=== PATIENT | female | born 1940 | race Caucasian/White ===

== ENCOUNTER 2019-05-27 16:18 | Observation (INO) ==
--- NOTE | 2019-05-27 16:38 | Emergency Department Note ---
Disposition Clinical Impression: Mucus plugging of bronchi, Mass of left lung, Adrenal mass, Pulmonary artery abnormality Lung cancer, primary, with metastasis from lung to other site Qualifiers: Laterality: left Qualified Code(s): C34.92 - Malignant neoplasm of unspecified part of left bronchus or lung Dyspnea Qualifiers: Dyspnea type: shortness of breath Qualified Code(s): R06.02 - Shortness of breath Disposition: Admitted As Inpatient Condition: Fair Time of Disposition: 19:25 General Adult HPI - General Chief complaint: ED Shortness of Breath/Dyspnea Stated complaint: eyad Time Seen by Provider: 05/27/19 16:26 Source: patient Limitations: no limitations - History of Present Illness Pain Scale: 6 - Related Data Home Medications Medication Instructions Recorded Confirmed Apixaban [Eliquis] 2.5 mg PO BID 05/27/19 05/27/19 Aspirin [Lo-Dose Aspirin EC] 81 mg PO DAILY 05/27/19 05/27/19 Buspirone HCl [Buspar] 7.5 mg PO BID 05/27/19 05/27/19 Cabozantinib S-Malate [Cabometyx] 40 mg PO DAILY 05/27/19 05/27/19 MethylPREDNISolone 4 mg PO AD 05/27/19 05/27/19 [MethylPREDNISolone Dose Pack] Metoprolol [Lopressor] 12.5 mg PO BID 05/27/19 05/27/19 Ondansetron ODT [Zofran ODT] 8 mg SL Q8HR PRN 05/27/19 05/27/19 Sodium Bicarbonate 650 mg PO BID 05/27/19 05/27/19 levoFLOXacin [Levaquin] 500 mg PO DAILY 05/27/19 05/27/19 Allergies Allergy/AdvReac Type Severity Reaction Status Date / Time No Known Allergies Allergy Verified 05/27/19 16:44 Past Medical History - Past Medical History Medical history: Reports: cancer, myocardial infarction Psychiatric history: Reports: no psych history - Social History Smoking Status: Former smoker Alcohol use: Reports: none Drug use: Reports: none Physical Exam - General Limitations: no limitations General appearance: alert, in no apparent distress Course Vital Signs Temperature 98.0 F 05/27/19 16:26 Pulse Rate 109 05/27/19 16:26 Respiratory Rate 20 05/27/19 16:26 Blood Pressure 189/114 05/27/19 16:26 O2 Sat by Pulse Oximetry 98 05/27/19 16:26 Temperature 97.7 F 05/27/19 23:06 Pulse Rate 89 05/27/19 23:06 Respiratory Rate 14 05/27/19 23:06 Blood Pressure 172/68 05/27/19 23:06 O2 Sat by Pulse Oximetry 99 05/27/19 23:06 Oxygen Delivery Oxygen Delivery Nasal Cannula Medical Decision Making - Lab Data Result diagrams: 05/27/19 16:45 05/27/19 16:45 Lab Results 05/27/19 05/27/19 05/27/19 Range/Units 16:45 16:45 18:40 WBC 10.7 (4.3-11.1) K/mcL RBC 4.20 (3.82-4.97) M/mcL Hgb 10.6 L (11.5-15.4) g/dL Hct 34.8 L (35.3-44.9) % MCV 82.9 L (83.0-100.0) fL MCH 25.2 L (28.0-33.3) pg MCHC 30.5 L (31.6-35.5) g/dL RDW 24.0 H (11.5-14.5) % Plt Count 506 H (140-400) K/mcL MPV 9.6 (9.4-12.4) fL Immature Gran % 0.7 (0-4) % Seg Neutrophils % 91.0 % Lymphocytes % 5.3 % Monocytes % 2.9 % Eosinophils % 0.0 % Basophils % 0.1 % Neutrophils # 9.7 H (1.6-8.9) K/mcL Lymphocytes # 0.6 (0.6-4.6) K/mcL Monocytes # 0.3 (0.0-1.3) K/mcL Eosinophils # 0.0 (0.0-0.6) K/mcL Basophils # 0.0 (0.0-0.2) K/mcL Nucleated RBCs/100 WBC 0.2 H (0) /100 WBC Platelet Estimate Slight increase H (Normal) Hypochromasia Present A (Not Present) Anisocytosis 3+ A (Not Present) PT 17.1 H (9.4-12.1) Seconds INR 1.5 APTT 32.4 (26.0-36.0) Seconds Heparin Anti-Xa, Unfract 1.86 H* (0.30-0.70) IU/mL Sodium 137 (136-145) mEq/L Potassium 4.8 (3.5-5.1) mEq/L Chloride 106 (98-107) mEq/L Carbon Dioxide 19 L (23-29) mEq/L BUN 55 H (8-23) mg/dL Creatinine 2.09 H (0.60-1.20) mg/dL Est GFR ( Amer) 28 L (> 60) Est GFR (Non-Af Amer) 23 L (> 60) BUN/Creatinine Ratio 26 (6-26) Glucose 108 H (70-105) mg/dL Calculated Osmolality 300 (280-300) Calcium 8.7 (8.6-10.3) mg/dL Troponin I 0.08 H* (< 0.04) ng/mL Attestation Statement - Attestation Attestation: I examined this patient and my medical decision-making was reviewed with the Resident Physician. I agree with the documented findings, disposition and treatment plan as described except to the extent set forth below. Patient presents to the ED with a chief complaint of shortness of breath for several days duration. Patient has a known lung tumor. She is also complaining of some lower abdominal discomfort. She has been seen by her PCP and started on outpatient antibiotic. Receives most of her care Allison. On exam she appears comfortable. Diffuse expiratory wheezing on lung auscultation. Plan. Nebs, cardiac workup, VQ scan. EKG reviewed with the resident. Case discussed with the radiologist. There is concern there was no perfusion to the left lung. Question if this is cancer related. He believes it most likely is. She was placed on a heparin drip so we could remove her from Eliquis for possible bronchoscopy after discussing with pulmonology. Pulmonary Perfusion Imaging 05/27/19 00:00 IMPRESSION: Intermediate probability for pulmonary embolus. Essentially no perfusion to the left lung which may be due to pulmonary artery occlusion by the known malignancy, or less likely embolus. D/ / 05/27/2019 18:10:43 Gerhard Merino MD / [place] Interpreting Provider: Gerhard Merino MD Chest CT 05/27/19 16:40 IMPRESSION: Redemonstration of a large left lower lobe mass with postobstructive pneumonitis and atelectasis. New when compared to the previous exam is mucous plugging and/or aspiration debris within the left upper lobe airways, which is a likely etiology of the patient's increasing dyspnea. Redemonstration of emphysema, a nodular opacity adjacent to the minor fissure on the right, and a metastatic right adrenal lesion. D/ / Nahum Queen MD / Nahum Queen MD Interpreting Provider: Nahum Queen MD Chest X-Ray 05/27/19 16:47 IMPRESSION: Left basilar masslike consolidation and trace left pleural effusion, similar to the recent PET-CT. No new abnormality. D/ / 05/27/2019 17:11:16 Travis Merino MD / ang Interpreting Provider: Travis Merino MD Abdomen/Pelvis CT 05/27/19 17:11 IMPRESSION: 1. No acute process demonstrated 2. Stable right adrenal mass and left upper quadrant soft tissue nodules 3. Colonic diverticulosis 4. Status post left nephrectomy and segmental sigmoid resection D/ / Ryan Collins MD / Ryan Collins MD Interpreting Provider: Ryan Collins MD
[2019-05-27] MEDS ORDERED: 0.9 % Sodium Chloride 500 ML IVC ONE (16:41)
[2019-05-27] MEDS ORDERED: Ondansetron 4 MG/2 ML VIAL IVP ONE (16:41)
[2019-05-27] MEDS ORDERED: Ipratropium/Albuterol Neb 3 ML IH ONE (16:42)
[2019-05-27 17:12] LABS: Basophils % 0.1 %; Hematocrit 34.8 % (35.3-44.9); Hemoglobin 10.6 g/dL (11.5-15.4); Immature Granulocytes % 0.7 % (0-4); Lymphocytes # 0.6 K/mcL (0.6-4.6); Lymphocytes % 5.3 %; Mean Corpuscular HGB Conc 30.5 g/dL (31.6-35.5); Mean Corpuscular Hemoglobin 25.2 pg (28.0-33.3); Mean Corpuscular Volume 82.9 fL (83.0-100.0); Mean Platelet Volume 9.6 fL (9.4-12.4); Monocytes # 0.3 K/mcL (0.0-1.3); Monocytes % 2.9 %; Neutrophils # 9.7 K/mcL (1.6-8.9); Nucleated Red Blood Cells 0.2 /100 WBC (0); Platelet Count 506 K/mcL (140-400); White Blood Count 10.7 K/mcL (4.3-11.1)
--- NOTE | 2019-05-27 17:22 | Emergency Department Note ---
Disposition Clinical Impression: Mucus plugging of bronchi, Mass of left lung, Adrenal mass, Pulmonary artery abnormality Lung cancer, primary, with metastasis from lung to other site Qualifiers: Laterality: left Qualified Code(s): C34.92 - Malignant neoplasm of unspecified part of left bronchus or lung Dyspnea Qualifiers: Dyspnea type: shortness of breath Qualified Code(s): R06.02 - Shortness of breath Disposition: Admitted As Inpatient Condition: Fair Forms: ED Satisfaction Letter Time of Disposition: 19:22 SOB HPI - General Chief Complaint: ED Shortness of Breath/Dyspnea Stated Complaint: eyad Time Seen by Provider: 05/27/19 16:26 Source: patient Mode of arrival: ambulatory Limitations: no limitations Nursing Notes Reviewed: Yes Vital Signs Reviewed: Yes - History of Present Illness 78-year-old female history of lung cancer with metastases to the adrenal glands. Showing has one kidney secondary to losing one to renal cell carcinoma. She is not stage IV kidney failure. She normally gets her care done at [facility]. She is currently on immunotherapy at this time she is doing chemotherapy. She did have 15 rounds of radiation proximally one month ago. She was diagnosed with lung cancer in December. Said that she has having increasing shortness of breath as well as some mild nausea. She has been taking her Zofran she was recently seen by her primary care physician 3 days ago she does have history of COPD and was started on Levaquin as well as prednisone. Has been on 3 days that with no relief of her shortness of breath. She also recently started on oxygen home therapy being on 2 L at all times secondary to her lung cancer as well as COPD. Patient otherwise has no other complaints she did not have any fevers. He denies any chest pain - Related Data Home Medications Medication Instructions Recorded Confirmed Apixaban [Eliquis] 2.5 mg PO BID 05/27/19 05/27/19 Aspirin [Lo-Dose Aspirin EC] 81 mg PO DAILY 05/27/19 05/27/19 Buspirone HCl [Buspar] 7.5 mg PO BID 05/27/19 05/27/19 Cabozantinib S-Malate [Cabometyx] 40 mg PO DAILY 05/27/19 05/27/19 MethylPREDNISolone 4 mg PO AD 05/27/19 05/27/19 [MethylPREDNISolone Dose Pack] Metoprolol [Lopressor] 12.5 mg PO BID 05/27/19 05/27/19 Ondansetron ODT [Zofran ODT] 8 mg SL Q8HR PRN 05/27/19 05/27/19 Sodium Bicarbonate 650 mg PO BID 05/27/19 05/27/19 levoFLOXacin [Levaquin] 500 mg PO DAILY 05/27/19 05/27/19 Allergies Allergy/AdvReac Type Severity Reaction Status Date / Time No Known Allergies Allergy Verified 05/27/19 16:44 All systems ED: reviewed and negative except as stated. Review of Systems: As Per HPI Past Medical History - Past Medical History Attestation: Yes The following information was validated with the patient. Source: patient Medical history: Reports: cancer, myocardial infarction Psychiatric history: Reports: no psych history - Social History Smoking Status: Former smoker Alcohol use: Reports: none Drug use: Reports: none Physical Exam - General Limitations: no limitations General appearance: alert, in no apparent distress - Head Head exam: atraumatic, normocephalic, normal inspection - Eye Eye exam: Present: normal appearance, PERRL, EOMI - ENT ENT exam: normal exam, normal oropharynx, mucous membranes moist - Neck Neck exam: Present: normal inspection, full ROM, trachea midline - Chest Chest inspection: Present: normal inspection, symmetric chest wall rise - Respiratory Respiratory exam: Present: normal lung sounds bilaterally, wheezes (I will expiratory wheezes). Absent: respiratory distress, accessory muscle use - Cardiovascular Cardiovascular exam: Present: regular rate (He jyotsna), normal rhythm, normal heart sounds - Abdominal Exam Abdominal exam: Present: soft, Non-Tender, normal bowel sounds. Absent: tenderness, distention, guarding, rebound, rigidity - Extremities Exam Extremities exam: Present: normal inspection, full ROM. Absent: tenderness, pedal edema - Back Exam Back exam: Present: normal inspection, full ROM. Absent: tenderness - Neurological Exam Neurological exam: Present: alert, oriented X3 - Skin Skin exam: Present: warm, dry, intact, normal color Course Course Narrative: We have basic labs including CBC BMP troponin. Well-seated EKG and chest x-ray. Patient does have history of kidney failure only has one kidney so is not a candidate to CT angiogram of the chest rule out pulmonary embolus and so we will get a VQ scan. To get better imaging of the chest for possible pneumonia or worsening of her nodules we will get a CT of the chest without contrast as well as of the abdomen and pelvis due to the nausea and mild abdominal pain she is having. Patient care this plan. We will receive duo nebs. Is currently on steroids at this time. No further steroid treatment is needed. - Consultations Consultation #1: Spoke with pulmonology who recommended heparinizing the patient and stopping the Eliquis and in 2 days they will plan to do bronchoscopy to get better look of her lungs. No further recommendations by pulmonology at this time. Spoke with Dr. Jacob Time: 18:52 Vital Signs Temperature 98.0 F 05/27/19 16:26 Pulse Rate 109 05/27/19 16:26 Respiratory Rate 20 05/27/19 16:26 Blood Pressure 189/114 05/27/19 16:26 O2 Sat by Pulse Oximetry 98 05/27/19 16:26 Temperature 98.0 F 05/27/19 16:26 Pulse Rate 99 05/27/19 18:21 Respiratory Rate 20 05/27/19 18:21 Blood Pressure 156/91 05/27/19 18:21 O2 Sat by Pulse Oximetry 100 05/27/19 18:21 Oxygen Delivery Oxygen Delivery Nasal Cannula Shortness of Breath/Dyspnea - MDM Narrative Medical decision making narrative: 78 year old female presented to the emergency department with dyspnea. She does have diagnosis of lung cancer with metastases to the adrenal glands. She is [facility] at [facility] for her oncology. The CAT scan showed possible mucous plugging as well as aspiration. Says she has not vomited there is no risk of aspiration this time so not to treat her we will get blood cultures. We did do a VQ scan due to patient having one kidney and having stage IV kidney failure which did show no blood flow to the left lung which could be secondary to patient's tumor rather than a pulmonary embolus of her chair he is anticoagulated on Eliquis. We will change patient to heparin and heparinize her. I did speak with the on-call steel post installer who recommended bronchoscopy in 2 days to allow the Eliquis to get out of her system. Patient is stable at this time is been no respiratory distress. Did give her a breathing treatments did help with her breathing. He is arty been on 3 days of steroids as well as 3 days Levaquin with no relief. I think this is all secondary to patient's wo rsening cancer and nodules/mass. Patient will be admitted for further evaluation to the hospitalist service I spoke with Dr. Tom Who agreed to admit the patient to their service. Patient is admitted in fair condition. CODE STATUS DNI but otherwise full code Pulmonary Perfusion Imaging 05/27/19 00:00 IMPRESSION: Intermediate probability for pulmonary embolus. Essentially no perfusion to the left lung which may be due to pulmonary artery occlusion by the known malignancy, or less likely embolus. D/ / 05/27/2019 18:10:43 Gerhard Merino MD / [place] Interpreting Provider: Gerhard Merino MD Chest CT 05/27/19 16:40 IMPRESSION: Redemonstration of a large left lower lobe mass with postobstructive pneumonitis and atelectasis. New when compared to the previous exam is mucous plugging and/or aspiration debris within the left upper lobe airways, which is a likely etiology of the patient's increasing dyspnea. Redemonstration of emphysema, a nodular opacity adjacent to the minor fissure on the right, and a metastatic right adrenal lesion. D/ / Nahum Queen MD / Nahum Queen MD Interpreting Provider: Nahum Queen MD Chest X-Ray 05/27/19 16:47 IMPRESSION: Left basilar masslike consolidation and trace left pleural effusion, similar to the recent PET-CT. No new abnormality. D/ / 05/27/2019 17:11:16 Travis Merino MD / ang Interpreting Provider: Travis Merino MD Abdomen/Pelvis CT 05/27/19 17:11 IMPRESSION: 1. No acute process demonstrated 2. Stable right adrenal mass and left upper quadrant soft tissue nodules 3. Colonic diverticulosis 4. Status post left nephrectomy and segmental sigmoid resection D/ / Ryan Collins MD / Ryan Collins MD Interpreting Provider: Ryan Collins MD Done for 5 days she said it is doing cannot feel like he do a candidate ED and she is on 5 days and she wants - Medical Records Medical records reviewed: Yes I reviewed the patient's medical records. - Lab Data Lab results reviewed: Yes I reviewed the patient's lab results. Result diagrams: 05/27/19 16:45 05/27/19 16:45 Lab Results 05/27/19 05/27/19 Range/Units 16:45 16:45 WBC 10.7 (4.3-11.1) K/mcL RBC 4.20 (3.82-4.97) M/mcL Hgb 10.6 L (11.5-15.4) g/dL Hct 34.8 L (35.3-44.9) % MCV 82.9 L (83.0-100.0) fL MCH 25.2 L (28.0-33.3) pg MCHC 30.5 L (31.6-35.5) g/dL RDW 24.0 H (11.5-14.5) % Plt Count 506 H (140-400) K/mcL MPV 9.6 (9.4-12.4) fL Immature Gran % 0.7 (0-4) % Seg Neutrophils % 91.0 % Lymphocytes % 5.3 % Monocytes % 2.9 % Eosinophils % 0.0 % Basophils % 0.1 % Neutrophils # 9.7 H (1.6-8.9) K/mcL Lymphocytes # 0.6 (0.6-4.6) K/mcL Monocytes # 0.3 (0.0-1.3) K/mcL Eosinophils # 0.0 (0.0-0.6) K/mcL Basophils # 0.0 (0.0-0.2) K/mcL Nucleated RBCs/100 WBC 0.2 H (0) /100 WBC Platelet Estimate Slight increase H (Normal) Hypochromasia Present A (Not Present) Anisocytosis 3+ A (Not Present) Sodium 137 (136-145) mEq/L Potassium 4.8 (3.5-5.1) mEq/L Chloride 106 (98-107) mEq/L Carbon Dioxide 19 L (23-29) mEq/L BUN 55 H (8-23) mg/dL Creatinine 2.09 H (0.60-1.20) mg/dL Est GFR ( Amer) 28 L (> 60) Est GFR (Non-Af Amer) 23 L (> 60) BUN/Creatinine Ratio 26 (6-26) Glucose 108 H (70-105) mg/dL Calculated Osmolality 300 (280-300) Calcium 8.7 (8.6-10.3) mg/dL Troponin I 0.08 H* (< 0.04) ng/mL - Radiology Data Radiology results reviewed: Yes I reviewed the patient's radiology results. - EKG Data EKG attestation: Yes I reviewed and interpreted this EKG. EKG results narrative: EKG done at 1638 review myself and the attending shows sinus tachycardia rate of 103, DE interval 107, QRS 109, QTC 463. There is no acute ST changes no acute T-wave changes no other signs of ischemia. No signs of there is left ventricle hypertrophy as well as a right bundle branch block no other blocks no signs of heart strain. No WPW/Brugada/HOCM. No old EKG compare with
[2019-05-27 17:33] LABS: Calcium 8.7 mg/dL (8.6-10.3); Potassium 4.8 mEq/L (3.5-5.1)
[2019-05-27 17:36] LABS: Troponin I 0.08 ng/mL (< 0.04)
[2019-05-27 17:41] LABS: Anisocytosis 3+ (Not Present); Hypochromasia Present (Not Present)
[2019-05-27] MEDS ORDERED: *HR* Heparin 5,000 UNIT/ML VIAL IVP PRN ×2 (18:29)
[2019-05-27] MEDS ORDERED: *HR* Heparin 5,000 UNIT/ML VIAL IVP ONE (18:29)
[2019-05-27] MEDS ORDERED: Heparin 25,000 UNIT/250 ML D5W 25,000 UNIT/250 ML IV.SOLN IVC SCH (18:30)
[2019-05-27 19:13] LABS: INR 1.5; Prothrombin Time 17.1 Seconds (9.4-12.1)
[2019-05-27 19:15] LABS: Activated Partial Thrombo Time 32.4 Seconds (26.0-36.0)
[2019-05-27 19:23] LABS: Heparin anti-factor XA UFH 1.86 IU/mL (0.30-0.70)
[2019-05-27] MEDS ORDERED: Ringers Solution, Lactated 1,000 ML IVC SCH (20:15)
[2019-05-27] MEDS ORDERED: Naloxone 0.4 MG/ML INJ IVP PRN (20:16)
[2019-05-27] MEDS ORDERED: Acetaminophen 325 MG TABLET PO PRN (20:16)
[2019-05-27] MEDS ORDERED: traMADol 50 MG TABLET PO PRN (20:16)
[2019-05-27] MEDS ORDERED: traZODone 50 MG TABLET PO ONE (21:00)
--- NOTE | 2019-05-27 21:00 | Internal Med History&Physical ---
Date of Encounter: 05/27/19 Time of Encounter: 20:59 Internal Medicine - H&P: HPI Chief complaint: SOB Admitted From: Home Plans for Post Hospital Care: Home History of present illness: Carmela Blanco is a 78 year old woman diagnosed with metastatic lung cancer 5 months ago, atrial fibrillation on apixaban and chronic kidney disease due to a solitary right kidney after left nephrectomy due to RCC. She usually gets her care at [facility], has undergone radiation therapy and is now on immunotherapy however family members have not been happy with her care. She has been having increasing shortness of breath that has not improved with oxygen therapy, antibiotics and steroids for which reason she was brought here. A CTA was unable to be done given her kidney function however a VQ scan showed no perfusion to the left lung which may be due to pulmonary artery occlusion by the known malignancy or less likely embolus. Pulmonary was consulted and recommended she be placed on heparin in the interim and will be scheduled for bronchoscopy. She has not been hypoxic throughout her stay but subjectively feels short of breath. She denies fever, chills and productive cough. She has expressed her desire to not have resuscitative efforts done. Vitals: Reviewed General: Emaciated elderly woman sitting up in bed notably anxious. Skin: Warm, dry and pale. HEENT: Moist mucous membranes. (+) conjunctivae pallor. Neck: No carotid bruits. No palpable thyroid. Chest: Diminished thoracic expansion. Fine rales in the right base. Reduced breath sounds in the left base. Heart: Tachycardic and irregularly irregular. Abdomen: Non-distended, soft and non-tender to palpation. No peritoneal reaction. Extremities: No clubbing, cyanosis or edema. No calf tenderness. Normal distal pulses. Neurological: Awake, alert and oriented to person, place and time. No focal deficits. Psych: Affect appropriate. Assessment/Plan 1. Acute respiratory failure: Possibly secondary to the obstructive mass of the malignancy or an embolic entity. This is yet unclear but in the interim will continue oxygen therapy, nebulizers as needed and comfort measures pending evaluation by pulmonary for bronchoscopy consideration. We will need to obtain records from [facility]. 2. Atrial fibrillation: On anticoagulation and beta blockers. 3. Metastatic lung cancer: On daily cabozantinib. 4. CKD: Unclear baseline. Will recheck after fluids. Continue bicarb. 5. CAD: Continue daily aspirin. Past Med Surg Social Fam HX - Past Medical History Medical history: cancer, myocardial infarction Additional medical history: carcinoma Psychiatric history: no psych history - Social History Smoking Status: Former smoker Alcohol use: none Drug use: none Internal Medicine - H&P: Meds Apixaban [Eliquis] 2.5 mg PO BID 05/27/19 [History] Aspirin [Lo-Dose Aspirin EC] 81 mg PO DAILY 05/27/19 [History] Buspirone HCl [Buspar] 7.5 mg PO BID 05/27/19 [History] Cabozantinib S-Malate [Cabometyx] 40 mg PO DAILY 05/27/19 [History] MethylPREDNISolone [MethylPREDNISolone Dose Pack] 4 mg PO AD 05/27/19 [History] Metoprolol [Lopressor] 12.5 mg PO BID 05/27/19 [History] Ondansetron ODT [Zofran ODT] 8 mg SL Q8HR PRN 05/27/19 [History] Sodium Bicarbonate 650 mg PO BID 05/27/19 [History] levoFLOXacin [Levaquin] 500 mg PO DAILY 05/27/19 [History] Allergy/AdvReac Type Severity Reaction Status Date / Time No Known Allergies Allergy Verified 05/27/19 16:44 All Systems PM: A 10-system review of systems was performed and is negative for pertinent findings except as documented above in the HPI. Family history reviewed and found non-contributory. - Constitutional Vitals: Temp Pulse Resp BP Pulse Ox 98.0 F 101 24 187/92 97 05/27/19 16:26 05/27/19 19:35 05/27/19 19:56 05/27/19 19:56 05/27/19 19:35 Exam: . Internal Med - H&P Results - Labs CBC & Chem 7: 05/27/19 16:45 05/27/19 16:45 Labs: Short CBC 05/27/19 Range/Units 16:45 WBC 10.7 (4.3-11.1) K/mcL Hgb 10.6 L (11.5-15.4) g/dL Hct 34.8 L (35.3-44.9) % Plt Count 506 H (140-400) K/mcL Neutrophils # 9.7 H (1.6-8.9) K/mcL BMP 05/27/19 16:45 Sodium 137 Potassium 4.8 Chloride 106 Carbon Dioxide 19 L BUN 55 H Creatinine 2.09 H Glucose 108 H Calcium 8.7 Cardiac Enzymes 05/27/19 Range/Units 16:45 Troponin I 0.08 H* (< 0.04) ng/mL - Impressions ITS Impressions Pulmonary Perfusion Imaging 05/27/19 00:00 IMPRESSION: Intermediate probability for pulmonary embolus. Essentially no perfusion to the left lung which may be due to pulmonary artery occlusion by the known malignancy, or less likely embolus. D/ / 05/27/2019 18:10:43 Gerhard Merino MD / [place] Interpreting Provider: Gerhard Merino MD Chest CT 05/27/19 16:40 IMPRESSION: Redemonstration of a large left lower lobe mass with postobstructive pneumonitis and atelectasis. New when compared to the previous exam is mucous plugging and/or aspiration debris within the left upper lobe airways, which is a likely etiology of the patient's increasing dyspnea. Redemonstration of emphysema, a nodular opacity adjacent to the minor fissure on the right, and a metastatic right adrenal lesion. D/ / Nahum Queen MD / Nahum Queen MD Interpreting Provider: Nahum Queen MD Chest X-Ray 05/27/19 16:47 IMPRESSION: Left basilar masslike consolidation and trace left pleural effusion, similar to the recent PET-CT. No new abnormality. D/ / 05/27/2019 17:11:16 Travis Merino MD / ang Interpreting Provider: Travis Merino MD Abdomen/Pelvis CT 05/27/19 17:11 IMPRESSION: 1. No acute process demonstrated 2. Stable right adrenal mass and left upper quadrant soft tissue nodules 3. Colonic diverticulosis 4. Status post left nephrectomy and segmental sigmoid resection D/ / Ryan Collins MD / Ryan Collins MD Interpreting Provider: Ryan Collins MD - Time Spent With Patient Total time spent is greater than 50% in coordination of care (as documented) at patient's floor/unit and/or counseling patient: Greater than 35 minutes
[2019-05-28 02:05] LABS: Hematocrit 30.4 % (35.3-44.9); Hemoglobin 9.1 g/dL (11.5-15.4); Immature Granulocytes % 0.6 % (0-4); Lymphocytes # 0.7 K/mcL (0.6-4.6); Mean Corpuscular HGB Conc 29.9 g/dL (31.6-35.5); Mean Corpuscular Hemoglobin 24.8 pg (28.0-33.3); Mean Corpuscular Volume 82.8 fL (83.0-100.0); Mean Platelet Volume 10.1 fL (9.4-12.4); Monocytes # 0.3 K/mcL (0.0-1.3); Monocytes % 3.9 %; Nucleated Red Blood Cells 0.2 /100 WBC (0); Platelet Count 382 K/mcL (140-400); Red Blood Count 3.67 M/mcL (3.82-4.97); Red Cell Distribution Width 23.4 % (11.5-14.5); Segmented Neutrophils % 87.5 %; White Blood Count 8.5 K/mcL (4.3-11.1)
[2019-05-28 02:18] LABS: Neutrophils # 7.4 K/mcL (1.6-8.9)
[2019-05-28 02:26] LABS: Albumin/Globulin Ratio 1.1 (1.1-2.2); Bilirubin,Indirect 0.2 mg/dL (0.0-1.2); Bilirubin,Total 0.2 mg/dL (0.3-1.0); Calcium 8.2 mg/dL (8.6-10.3); Globulin 2.7 g/dL (2.4-3.5); Magnesium 1.4 mg/dL (1.6-2.6); Potassium 4.2 mEq/L (3.5-5.1); Total Protein 5.7 g/dL (6.4-8.9)
[2019-05-28 02:32] LABS: Troponin I 0.07 ng/mL (< 0.04)
[2019-05-28 02:42] LABS: Anisocytosis 2+ (Not Present); Hypochromasia Present (Not Present); Microcytosis Present (Not Present); Platelet Estimate Normal (Normal)
[2019-05-28] MEDS: Aspirin Enteric Coated 81 MG Tablet PO SCH (11:30)
[2019-05-28] MEDS: CABOZANTINIB S MALATE 40 MG PO SCH (11:32)
[2019-05-28] MEDS: levoFLOXacin 750 MG/150 ML 750 MG/150 ML BAG IVPB SCH (14:37)
--- NOTE | 2019-05-28 14:55 | Internal Med Progress Note ---
Hospitalist Progress Note - Encounter Date of Encounter: 05/28/19 Time of Encounter: 14:44 - Subjective Interval History: Ms. 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 She has been having increasing shortness of breath that has not improved with oxygen therapy, antibiotics and steroids for which reason she was brought here. A CTA was unable to be done given her kidney function however a VQ scan showed no perfusion to the left lung which may be due to pulmonary artery occlusion by the known malignancy or less likely embolus. Her CT of chest showed LLL mass and obstructive pneumonitis. Pt was seen and exmained at bed side. She is currently on 4 lit O2. She still has SOB and PARKER. She denied any CP. - Exam Vitals: Temp Pulse Resp BP Pulse Ox 97.6 F 64 17 166/78 98 05/28/19 11:56 05/28/19 11:56 05/28/19 11:56 05/28/19 11:56 05/28/19 11:56 Exam: Gen: Alert, awake, Oriented to time,place and person Chest: Diminished breath sounds B/L, Moderate wheezing, No crackles, No rales Heart: S1S2+ RRR No murmurs Abd: Soft, NT, BS +, No organomegaly Ext: No edema, pulses are palpable, No calf tenderness Neuro : No acute focal neuro deficits noticed Skin: No rash. - Assessment and Plan (1) Pneumonitis Current Visit: Yes Status: Acute Assessment and Plan: She does have post obstructive pneumoniaitis possibility for supra inf with bacteria Started on Levaquin Q48hr cont supportive care (2) Acute on chronic respiratory failure with hypoxia Current Visit: Yes Status: Acute Assessment and Plan: cont frequent bronchodilator therapy She does use 2 lit O2 at home,, Currently on 4 lit o2.. Will try to wean her down to home O2 since she does have mild wheezing will start her on Prednisone 40mg PO Daily Her VQ scan reviewed by Pulmonary, who do not think she has PE d/c heparin gtt and switched to Eliquis as per Pulm recommendations She does have LLL obstruction due to the mass, however this is seems to be stable since January She went for bronchoscope in January @ [facility], who were unable to remove / do any thing at that time (3) Lung cancer, primary, with metastasis from lung to other site Current Visit: Yes Status: Acute Assessment and Plan: She does have LLL obstruction due to the mass, however this is seems to be stable since January She went for bronchoscope in January @ [facility], who were unable to remove / do any thing at that time Pt would like to f/u our [facility] so consulted [facility] Possible d/c home in AM (4) CKD (chronic kidney disease), stage III Current Visit: Yes Status: Acute Assessment and Plan: stable Cr at baseline avoid nephrotoxic meds (5) Renal cell carcinoma Current Visit: Yes Status: Acute (6) Adrenal mass Current Visit: Yes Status: Acute (7) Mass of left lung Current Visit: Yes Status: Acute Assessment and Plan: LLL Mass seems to stable compare to her recent PET scan Talked to her regular Heme Onc Dr. Tang from [facility], who did not recommend any interventions now (8) Paroxysmal A-fib Current Visit: Yes Status: Acute Assessment and Plan: rate controlled with Metoprolol on Eliquis for anti coag - Time Spent with Patient Total time spent is greater than 50% in coordination of care (as documented) at patient's floor/unit and/or counseling patient: Internal Medicine: Result - Labs CBC & Chem 7: 05/28/19 01:43 05/28/19 01:43 Labs: Short CBC 05/27/19 05/28/19 Range/Units 16:45 01:43 WBC 10.7 8.5 (4.3-11.1) K/mcL Hgb 10.6 L 9.1 L D (11.5-15.4) g/dL Hct 34.8 L 30.4 L (35.3-44.9) % Plt Count 506 H 382 (140-400) K/mcL Neutrophils # 9.7 H 7.4 (1.6-8.9) K/mcL BMP 05/27/19 05/28/19 16:45 01:43 Sodium 137 141 Potassium 4.8 4.2 Chloride 106 111 H Carbon Dioxide 19 L 18 L BUN 55 H 53 H Creatinine 2.09 H 2.15 H Glucose 108 H 105 Calcium 8.7 8.2 L Cardiac Enzymes 05/27/19 05/28/19 Range/Units 16:45 01:43 Troponin I 0.08 H* 0.07 H* (< 0.04) ng/mL Liver Function 05/28/19 Range/Units 01:43 Total Bilirubin 0.2 L (0.3-1.0) mg/dL Direct Bilirubin 0.0 (0.0-0.2) mg/dL AST 21 (13-39) Units/L ALT 23 (7-52) Units/L Alkaline Phosphatase 69 (34-104) Units/L Albumin 3.0 L (3.5-5.7) g/dL - ABG Interpretation ABG results: PT/INR, D-dimer PT 17.1 Seconds (9.4-12.1) H 05/27/19 18:40 - Impressions Impressions Pulmonary Perfusion Imaging 05/27/19 00:00 IMPRESSION: Intermediate probability for pulmonary embolus. Essentially no perfusion to the left lung which may be due to pulmonary artery occlusion by the known malignancy, or less likely embolus. D/ / 05/27/2019 18:10:43 Gerhard Merino MD / [place] Interpreting Provider: Gerhard Merino MD Chest CT 05/27/19 16:40 IMPRESSION: Redemonstration of a large left lower lobe mass with postobstructive pneumonitis and atelectasis. New when compared to the previous exam is mucous plugging and/or aspiration debris within the left upper lobe airways, which is a likely etiology of the patient's increasing dyspnea. Redemonstration of emphysema, a nodular opacity adjacent to the minor fissure on the right, and a metastatic right adrenal lesion. D/ / Nahum Queen MD / Nahum Queen MD Interpreting Provider: Nahum Queen MD Chest X-Ray 05/27/19 16:47 IMPRESSION: Left basilar masslike consolidation and trace left pleural effusion, similar to the recent PET-CT. No new abnormality. D/ / 05/27/2019 17:11:16 Travis Merino MD / ang Interpreting Provider: Travis Merino MD Abdomen/Pelvis CT 05/27/19 17:11 IMPRESSION: 1. No acute process demonstrated 2. Stable right adrenal mass and left upper quadrant soft tissue nodules 3. Colonic diverticulosis 4. Status post left nephrectomy and segmental sigmoid resection D/ / Ryan Collins MD / Ryan Collins MD Interpreting Provider: Ryan Collins MD Echocardiogram 05/28/19 20:12 Impressions: LVEF 50%. Mild concentric left ventricular hypertrophy. Normal LV chamber size and low normal function. Normal right ventricular structure and function. Indeterminate diastolic function. Mild mitral regurgitation. No evidence of pulmonary hypertension. No significant valvular dysfunction. Left Ventricular Wall Motion: Rest Echo Findings All wall segments showed normal motion. Findings: Study Quality * Technically adequate exam. ECG Findings * Normal sinus rhythm. Left Ventricle * LVEF 50%. * Mild concentric left ventricular hypertrophy. * Normal LV chamber size and low normal function. * Indeterminate diastolic function. Right Ventricle * Normal right ventricular structure and function. Left Atrium * Mildly dilated left atrium. Right Atrium * Normal right atrial size. Interatrial Septum * Interatrial septum not well evaluated. Aortic Valve * Aortic valve not well visualized. * No aortic regurgitation. * No aortic stenosis. Mitral Valve * Mild mitral annular calcification * Mild mitral regurgitation. * No mitral stenosis. Tricuspid Valve * Normal tricuspid valve structure and function. * Trace tricuspid regurgitation. * No evidence of pulmonary hypertension. Pulmonic Valve * Normal pulmonic valve structure and function. * No pulmonic regurgitation. Aorta * Normally sized aortic root. Pericardium * The pericardium appears normal. IVC * Normal IVC dimensions and inspiratory collapse. Pulmonary Artery * Normal visualized portions of the main pulmonary artery. Consult Discharge Plan - Plan Referrals: Italo Wang, [Primary Care Provider] - (3) Lung cancer, primary, with metastasis from lung to other site Qualifiers: Laterality: left Qualified Code(s): C34.92 - Malignant neoplasm of unspecified part of left bronchus or lung
--- NOTE | 2019-05-28 15:31 | Pulmonology Consult Note ---
Date of Encounter: 05/28/19 Time of Encounter: 09:00 Assessment and Plan (1) Mucus plugging of bronchi Current Visit: Yes Status: Suspected I had extensive discussion with the patient and also and family at the bedside regarding bronchoscopy and management of her pain. I have explained to them my concern is she has endobronchial lesion and if she had bronchoscopy in [place] with trying to debulking tumor and perhaps either obtaining records or having the same interventional bronchoscopist seconds they noted tumor anatomy if there is any plan for bronchoscopy would be better. I am concerned about bleeding especially patient is on anticoagulation. It is less likely this is because mucus plugging and I feel it is more this is endobronchial lesion. I have discussed this with the primary team as well. (2) Pulmonary embolism Current Visit: Yes Status: Suspected Patient is high risk to have pulmonary embolism and since she is on anticoagulation then management and diabetes same and to continue at this time, however with suspicion of endobronchial lesion and occlusion of the pulmonary artery and I'm concern if she starts bleeding then it might be fatal. Qualifiers: Pulmonary embolism type: unspecified Chronicity: unspecified Acute cor pulmonale presence: without acute cor pulmonale Qualified Code(s): I26.99 - Other pulmonary embolism without acute cor pulmonale (3) Mass of left lung Current Visit: Yes Status: Chronic Patient needs to follow up with oncology and palliative care would be reasonable for pain management. Thank you for consultation and please call for any questions History of Present Illness Consult date: 05/28/19 Requesting physician: Michael Guzman Reason for consult: dyspnea, abnormal CXR/CT Chief complaint: Shortness of breath History of present illness: This is a pleasant 78-year-old female with metastatic lung cancer and atrial fibrillation on chronic anticoagulation with chronic kidney disease who pr esented to emergency room for shortness of breath and also discomfort in her upper abdomen. History is somewhat vague and family stated that she has been having this discomfort and nobody is giving care any pain medication to help her. Patient had CT chest without contrast and VQ scan. According to the family that patient has already is could be done in [place] and apparently they did debulking of the tumor. Patient stated that her breathing is better at this time and she was given antibiotics and steroids. Patient denies any hemoptysis and it was not clear if patient has pulmonary artery occlusion or pulmonary embolism. Patient is not requiring any significant oxygen need. Family stated that she is already seen an oncologist and they came here for help because nobody is helping her according to them. Past Med Surg Social Fam HX - Past Medical History Medical history: cancer, myocardial infarction Additional medical history: carcinoma Psychiatric history: no psych history - Social History Smoking Status: Former smoker Alcohol use: none Drug use: none Medications and Allergies Apixaban [Eliquis] 2.5 mg PO BID 05/27/19 [History] Aspirin [Lo-Dose Aspirin EC] 81 mg PO DAILY 05/27/19 [History] Buspirone HCl [Buspar] 7.5 mg PO BID 05/27/19 [History] Cabozantinib S-Malate [Cabometyx] 40 mg PO DAILY 05/27/19 [History] MethylPREDNISolone [MethylPREDNISolone Dose Pack] 4 mg PO AD 05/27/19 [History] Metoprolol [Lopressor] 12.5 mg PO BID 05/27/19 [History] Ondansetron ODT [Zofran ODT] 8 mg SL Q8HR PRN 05/27/19 [History] Sodium Bicarbonate 650 mg PO BID 05/27/19 [History] levoFLOXacin [Levaquin] 500 mg PO DAILY 05/27/19 [History] Allergy/AdvReac Type Severity Reaction Status Date / Time No Known Allergies Allergy Verified 05/27/19 16:44 All Systems: The remainder of the systems were reviewed and are negative Physical Examination Vital Signs: Vital Signs, Last 4 Hours Temp Pulse Resp BP Pulse Ox 05/28/19 11:56 97.6 F 64 17 166/78 98 General appearance: no acute distress Eyes: nonicteric ENT: oropharynx moist Neck: supple Effort: normal Inspection: kyphosis Auscultation: left: diminished breath sounds, right: clear Percussion: left: dull, right: not dull Cardiovascular: irregular rhythm Gastrointestinal: normoactive bowel sounds, non-distended Extremities: no cyanosis normal mental status, non-focal exam depressed Results - Laboratory Findings CBC and BMP: 05/28/19 01:43 05/28/19 01:43 PT/INR, D-dimer PT 17.1 Seconds (9.4-12.1) H 05/27/19 18:40 Abnormal lab findings: Abnormal lab results RBC 3.67 M/mcL (3.82-4.97) L 05/28/19 01:43 Hgb 9.1 g/dL (11.5-15.4) L D 05/28/19 01:43 Hct 30.4 % (35.3-44.9) L 05/28/19 01:43 MCV 82.8 fL (83.0-100.0) L 05/28/19 01:43 MCH 24.8 pg (28.0-33.3) L 05/28/19 01:43 MCHC 29.9 g/dL (31.6-35.5) L 05/28/19 01:43 RDW 23.4 % (11.5-14.5) H 05/28/19 01:43 Plt Count 506 K/mcL (140-400) H 05/27/19 16:45 Neutrophils # 9.7 K/mcL (1.6-8.9) H 05/27/19 16:45 Nucleated RBCs/100 WBC 0.2 /100 WBC (0) H 05/28/19 01:43 Platelet Estimate Slight increase (Normal) H 05/27/19 16:45 Hypochromasia Present (Not Present) A 05/28/19 01:43 Anisocytosis 2+ (Not Present) A 05/28/19 01:43 Microcytosis Present (Not Present) A 05/28/19 01:43 PT 17.1 Seconds (9.4-12.1) H 05/27/19 18:40 Heparin Anti-Xa, Unfract 0.97 IU/mL (0.30-0.70) H 05/28/19 11:42 Chloride 111 mEq/L (98-107) H 05/28/19 01:43 Carbon Dioxide 18 mEq/L (23-29) L 05/28/19 01:43 BUN 53 mg/dL (8-23) H 05/28/19 01:43 Creatinine 2.15 mg/dL (0.60-1.20) H 05/28/19 01:43 Est GFR ( Amer) 27 (> 60) L 05/28/19 01:43 Est GFR (Non-Af Amer) 22 (> 60) L 05/28/19 01:43 Glucose 108 mg/dL (70-105) H 05/27/19 16:45 Calculated Osmolality 307 (280-300) H 05/28/19 01:43 Calcium 8.2 mg/dL (8.6-10.3) L 05/28/19 01:43 Magnesium 1.4 mg/dL (1.6-2.6) L 05/28/19 01:43 Total Bilirubin 0.2 mg/dL (0.3-1.0) L 05/28/19 01:43 Troponin I 0.07 ng/mL (< 0.04) H* 05/28/19 01:43 Serum Total Protein 5.7 g/dL (6.4-8.9) L 05/28/19 01:43 Albumin 3.0 g/dL (3.5-5.7) L 05/28/19 01:43 - Diagnostic Findings CT scan - chest: report reviewed, image reviewed - Clinical Findings Intake & Output: Intake & Output 05/27/19 05/28/19 05/28/19 23:59 07:59 15:59 Intake Total 45 45 1989 Balance 45 / 45 1989 Weight 51.71 kg 51 kg Consult Discharge Plan - Plan Referrals: Italo Wang DO [Primary Care Provider] -
--- NOTE | 2019-05-28 17:50 | Oncology Inp Consult Note ---
<Shawn Cleaning - Last Filed: 05/28/19 17:51> Date of Encounter: 05/28/19 - Data of Consult Requesting Physician: Napoleon Sheldon MD Primary Care Provider: Italo Wang Medications and Allergies Apixaban [Eliquis] 2.5 mg PO BID 05/27/19 [History] Aspirin [Lo-Dose Aspirin EC] 81 mg PO DAILY 05/27/19 [History] Buspirone HCl [Buspar] 7.5 mg PO BID 05/27/19 [History] Cabozantinib S-Malate [Cabometyx] 40 mg PO DAILY 05/27/19 [History] Metoprolol [Lopressor] 12.5 mg PO BID 05/27/19 [History] Ondansetron ODT [Zofran ODT] 8 mg SL Q8HR PRN 05/27/19 [History] Sodium Bicarbonate 650 mg PO BID 05/27/19 [History] Megestrol Acetate [Megace] 800 mg PO DAILY #30 udc 05/30/19 [Rx] Nystatin [Nystatin Suspension] 100,000 units PO QID #120 ml 05/30/19 [Rx] OxyCODONE Immed Rel [Roxicodone 5 MG] 5 mg PO Q6H PRN 5 Days #20 tablet 05/30/19 [Rx] levoFLOXacin [Levaquin] 500 mg PO DAILY #5 tablet 05/30/19 [Rx] predniSONE [PredniSONE] 40 mg PO DAILY 7 Days #14 tablet 05/30/19 [Rx] Allergy/AdvReac Type Severity Reaction Status Date / Time No Known Allergies Allergy Verified 05/27/19 16:44 Consult Discharge Plan - Plan Instructions: Prednisone (By mouth), Nystatin (By mouth), Megestrol Acetate (By mouth), Oxycodone, Rapid Release (By mouth), Levofloxacin (By mouth), Atrial Fibrillation (DC), Acute Respiratory Distress Syndrome (DC), Adrenal Gland Biopsy (DC), Bacterial Pneumonia (DC), Dyspnea (GEN) Referrals: Italo Wang DO [Primary Care Provider] - Prescriptions: levoFLOXacin [Levaquin] 500 mg PO DAILY #5 tablet Megestrol Acetate [Megace] 800 mg PO DAILY #30 udc Nystatin [Nystatin Suspension] 100,000 units PO QID #120 ml predniSONE [PredniSONE] 40 mg PO DAILY 7 Days #14 tablet OxyCODONE Immed Rel [Roxicodone 5 MG] 5 mg PO Q6H PRN 5 Days #20 tablet PRN Reason: Severe Pain Inpatient Charges Provider: Dr. Sindhu Cleaning Consult - Inpatient: [id number] - Attending Attestation I examined this patient and my medical decision-making was reviewed with the Advanced Practice Nurse. I agree with the documented findings, disposition and treatment plan as described except to the extent set forth below. -H/o metastatic NSCLC and RCC s/p nephrectomy now p/w SOB -Patient's oncologist is from [facility] -She would like to switch her care to [facility], which we would be happy to do. -We will obtain records from [facility] and arrange close follow up. Thank you for the consult! <Bridget Castillo M - Last Filed: 05/31/19 07:27> Date of Encounter: 05/28/19 Time of Encounter: 17:00 Assessment and Plan (1) Lung cancer, primary, with metastasis from lung to other site Status: Acute Assessment and plan: Metastatic lung cancer Will need release of records from Dr. Tang (oncologist) at [facility]. Patient will need an appointment with Dr. Cleaning in 2-3 weeks at [facility]. She will continue current treatment under Dr. Tang until her consult with Dr. Cleaning. Qualifiers: Laterality: left Qualified Code(s): C34.92 - Malignant neoplasm of unspecified part of left bronchus or lung - Data of Consult Patient: new to practice Consult date: 05/28/19 Requesting Physician: Napoleon Sheldon MD Primary Care Provider: Italo Wang - Consult Narrative Reason for consult: metastatic lung cancer History of present illness: Carmela, a 78 yo with a history of RCC s/p left nephrectomy, atrial fibrllation, CKD, and NSCLC (squamous cell carcinoma) diagnosed in January,. She notes that she has been receiving treatment by Dr. Tang, at [facility]. She and her family are requesting to transfer her care to [facility]. Discussed need for records to review and patient will need to sign release of information from Dr. Tang's office. Past Med Surg Social Fam HX - Past Medical History Medical history: cancer, myocardial infarction Additional medical history: carcinoma Psychiatric history: no psych history - Social History Smoking Status: Former smoker Alcohol use: none Drug use: none Constitutional: Present: fatigue Cardiovascular: Present: dyspnea, dyspnea on exertion Respiratory: Present: cough, dyspnea, dyspnea on exertion, chest congestion Oncology - Exam - Constitutional General appearance: cooperative, no acute distress, thin - Head Head exam: Present: normal inspection, normocephalic - Respiratory Respiratory exam: Present: decreased breath sounds - Cardiovascular Cardiovascular exam: Present: RRR - GI/Abdominal GI/Abdominal exam: Present: normal bowel sounds, soft. Absent: tenderness - Extremities Exam Extremities exam: Present: normal inspection - Neurological Exam Neurological exam: Present: alert, oriented X3. Absent: facial droop, speech deficit - Psychiatric Psychiatric exam: Present: normal affect, normal mood
[2019-05-28] MEDS: *HR* OxyCODONE Immed Rel 5 MG TABLET PO PRN (19:48)
[2019-05-28] MEDS: Apixaban 2.5 MG TABLET PO SCH (20:33)
--- NOTE | 2019-05-29 00:20 | Electrocardiograph Report ---
[place] [employer] [facility] Test Date: 2019-05-27 Pat Name: Carmela Blanco Department: EXAM3 Room: 3B55 Gender: F Salesperson Women'S Dresses: : 1940 Requested By: Darnell Abbott Order Number: [id number] Reading MD: Heber Hebert Measurements Intervals [place] Rate: 103 P: 103 WI: 107 QRS: 66 QRSD: 109 T: 75 QT: 353 QTc: 463 Interpretive Statements Sinus tachycardia LVH with secondary repolarization abnormality Anterior ST elevation, probably due to LVH Electronically Signed On 05-29-2019 0:18:56 EDT by Heber Hebert
[2019-05-29] MEDS: Ondansetron ODT 4 MG TAB.RAPDIS SL PRN (01:00)
[2019-05-29] MEDS: Ipratropium/Albuterol Neb 3 ML IH PRN ×3 (01:08→22:50)
[2019-05-29] MEDS ORDERED: *HR* Promethazine 25 MG/ML VIAL IVP ONE (01:26)
[2019-05-29] MEDS: Apixaban 2.5 MG TABLET PO SCH ×2 (08:18→19:37)
[2019-05-29] MEDS: Aspirin Enteric Coated 81 MG Tablet PO SCH (08:18)
[2019-05-29] MEDS: CABOZANTINIB S MALATE 40 MG PO SCH (08:39)
[2019-05-29] MEDS: Acetylcysteine 10% 2 ML INHSOL IH SCH ×2 (11:50→22:50)
--- NOTE | 2019-05-29 12:03 | Internal Med Progress Note ---
Hospitalist Progress Note - Encounter Date of Encounter: 05/29/19 Time of Encounter: 10:00 - Subjective Interval History: No acute events overnight - Exam Vitals: Temp Pulse Resp BP Pulse Ox 98.0 F 70 16 151/72 100 05/29/19 11:51 05/29/19 11:51 05/29/19 11:51 05/29/19 11:51 05/29/19 11:51 Exam: Gen: Alert, awake, Oriented to time,place and person Chest: Diminished breath sounds B/L, Moderate wheezing, No crackles, No rales Heart: S1S2+ RRR No murmurs Abd: Soft, NT, BS +, No organomegaly Ext: No edema, pulses are palpable, No calf tenderness Neuro : No acute focal neuro deficits noticed Skin: No rash. - Assessment and Plan (1) Acute on chronic respiratory failure with hypoxia Current Visit: Yes Status: Acute Assessment and Plan: Likely a comnbination of lung mass, pneumonitis and COPD exacerbation. Continue nebs , steroids and antibiotics. Pulmonary not performing bronchoscopy due to significant bleeding risk Mucomyst nebs assed to regimen this am Low likleihood of PE per pulm based on v/q scan (2) Lung cancer, primary, with metastasis from lung to other site Current Visit: Yes Status: Acute Assessment and Plan: She does have LLL obstruction due to the mass, however this is seems to be stable since January She went for bronchoscope in January @ [facility], who were unable to remove / do any thing at that time Pt will have subsequent follow ups with [facility] (3) Mass of left lung Current Visit: Yes Status: Chronic Assessment and Plan: LLL Mass seems to stable compare to her recent PET scan Talked to her regular Heme Onc Dr. Tang from [facility], who did not recommend any interventions now (4) Adrenal mass Current Visit: Yes Status: Acute Assessment and Plan: Follow up with heme/ onc (5) Renal cell carcinoma Current Visit: Yes Status: Acute Assessment and Plan: Outpatient f/u with oncology (6) CKD (chronic kidney disease), stage III Current Visit: Yes Status: Acute Assessment and Plan: stable Cr at baseline avoid nephrotoxic meds (7) Pneumonitis Current Visit: Yes Status: Acute Assessment and Plan: She does have post obstructive pneumoniaitis possibility for supra inf with bacteria Started on Levaquin Q48hr cont supportive care (8) Paroxysmal A-fib Current Visit: Yes Status: Acute Assessment and Plan: rate controlled with Metoprolol on Eliquis for anti coag DVT Prophylaxis: on eliquis - Time Spent with Patient Total time spent is greater than 50% in coordination of care (as documented) at patient's floor/unit and/or counseling patient: Internal Medicine: Result - Labs CBC & Chem 7: 05/28/19 01:43 05/28/19 01:43 - ABG Interpretation ABG results: PT/INR, D-dimer PT 17.1 Seconds (9.4-12.1) H 05/27/19 18:40 - Impressions Impressions Pulmonary Perfusion Imaging 05/27/19 00:00 IMPRESSION: Intermediate probability for pulmonary embolus. Essentially no perfusion to the left lung which may be due to pulmonary artery occlusion by the known malignancy, or less likely embolus. D/ / 05/27/2019 18:10:43 Gerhard Merino MD / [place] Interpreting Provider: Gerhard Merino MD Consult Discharge Plan - Plan Referrals: Italo Wang, [Primary Care Provider] - (2) Lung cancer, primary, with metastasis from lung to other site Qualifiers: Laterality: left Qualified Code(s): C34.92 - Malignant neoplasm of unspecified part of left bronchus or lung (5) Renal cell carcinoma Qualifiers: Qualified Code(s): C64.9 - Malignant neoplasm of unspecified kidney, except renal pelvis
[2019-05-29] MEDS: Megestrol Acetate 400 MG/10 ML UDC PO SCH (12:45)
[2019-05-29] MEDS: *HR* OxyCODONE Immed Rel 5 MG TABLET PO PRN (19:36)
[2019-05-29] MEDS: Nystatin SUSP 5 ML UD.LIQ PO SCH (21:37)
[2019-05-30 05:46] LABS: Hemoglobin 9.1 g/dL (11.5-15.4); Mean Corpuscular HGB Conc 29.4 g/dL (31.6-35.5); Mean Corpuscular Hemoglobin 25.3 pg (28.0-33.3); Mean Corpuscular Volume 86.4 fL (83.0-100.0); Mean Platelet Volume 10.2 fL (9.4-12.4); Platelet Count 287 K/mcL (140-400); Red Blood Count 3.59 M/mcL (3.82-4.97); Red Cell Distribution Width 23.5 % (11.5-14.5)
[2019-05-30 06:04] LABS: Potassium 4.5 mEq/L (3.5-5.1)
[2019-05-30 07:04] VITALS: BP 169/83
[2019-05-30] MEDS: Megestrol Acetate 400 MG/10 ML UDC PO SCH (07:04)
[2019-05-30] MEDS: Aspirin Enteric Coated 81 MG Tablet PO SCH (07:04)
[2019-05-30] MEDS: Apixaban 2.5 MG TABLET PO SCH (07:04)
[2019-05-30] MEDS: Nystatin SUSP 5 ML UD.LIQ PO SCH ×2 (07:05→11:44)
[2019-05-30] MEDS: CABOZANTINIB S MALATE 40 MG PO SCH (07:08)
[2019-05-30] MEDS: Ipratropium/Albuterol Neb 3 ML IH PRN (07:25)
[2019-05-30] MEDS: Acetylcysteine 10% 2 ML INHSOL IH SCH (07:26)
--- NOTE | 2019-05-30 10:46 | Discharge Summary ---
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 She usually gets her care at [facility], has undergone radiation therapy and is now on immunotherapy however family members have not been happy with her care. She has been having increasing shortness of breath that has not improved with oxygen therapy, antibiotics and steroids for which reason she was brought here. A CTA was unable to be done given her kidney function however a VQ scan showed no perfusion to the left lung which may be due to pulmonary artery occlusion by the known malignancy or less likely embolus. Pulmonary was consulted and recommended she be placed on heparin in the interim and will be scheduled for bronchoscopy. She was assessed with acute on chronic respiratory failure likely secondary to a combination of lung mass, pneumonitis and COPD exacerbation. She was started on nebs , steroids and antibiotics and improved. She had a CT done showing large left lower lobe mass with postobstructive pneumonitis and atelectasis and new mucous plugging. Pulmonary were consulted but did not recommend a bronchoscopy due to significant bleeding risk. They also reviewed her V/q scan and determined likeliood of PE was low. She improved on antibiotics and steroids and was discharged to complete a course of prednisone and levaquin. She will also follow up with oncology here going forward. 35 minutes was spent discharging this patient (2) Lung cancer, primary, with metastasis from lung to other site Priority: Primary Status: Acute Qualifiers: Laterality: left Qualified Code(s): C34.92 - Malignant neoplasm of unspecified part of left bronchus or lung (3) Mass of left lung Priority: Primary Status: Chronic (4) Adrenal mass Priority: Primary Status: Acute (5) Renal cell carcinoma Priority: Primary Status: Acute Qualifiers: Qualified Code(s): C64.9 - Malignant neoplasm of unspecified kidney, except renal pelvis (6) CKD (chronic kidney disease), stage III Priority: Primary Status: Acute (7) Pneumonitis Priority: Primary Status: Acute (8) Paroxysmal A-fib Priority: Primary Status: Acute Hospital course: Ms. Blanco is a 78 year old female - Time Spent with Patient Total time spent providing and/or coordinating discharge services: - Discharge Medications Prescriptions: New Megestrol Acetate [Megace] 800 mg PO DAILY #30 udc OxyCODONE Immed Rel [Roxicodone 5 MG] 5 mg PO Q6H PRN 5 Days #20 tablet PRN Reason: Severe Pain predniSONE [PredniSONE] 40 mg PO DAILY 7 Days #14 tablet Nystatin [Nystatin Suspension] 100,000 units PO QID #120 ml Continued Apixaban [Eliquis] 2.5 mg PO BID Sodium Bicarbonate 650 mg PO BID Ondansetron ODT [Zofran ODT] 8 mg SL Q8HR PRN PRN Reason: Nausea And Vomiting Metoprolol [Lopressor] 12.5 mg PO BID Buspirone HCl [Buspar] 7.5 mg PO BID Aspirin [Lo-Dose Aspirin EC] 81 mg PO DAILY Cabozantinib S-Malate [Cabometyx] 40 mg PO DAILY levoFLOXacin [Levaquin] 500 mg PO DAILY #5 tablet Discontinued MethylPREDNISolone [MethylPREDNISolone Dose Pack] 4 mg PO AD Home Medications: Apixaban [Eliquis] 2.5 mg PO BID 05/27/19 [History] Aspirin [Lo-Dose Aspirin EC] 81 mg PO DAILY 05/27/19 [History] Buspirone HCl [Buspar] 7.5 mg PO BID 05/27/19 [History] Cabozantinib S-Malate [Cabometyx] 40 mg PO DAILY 05/27/19 [History] Metoprolol [Lopressor] 12.5 mg PO BID 05/27/19 [History] Ondansetron ODT [Zofran ODT] 8 mg SL Q8HR PRN 05/27/19 [History] Sodium Bicarbonate 650 mg PO BID 05/27/19 [History] Megestrol Acetate [Megace] 800 mg PO DAILY #30 udc 05/30/19 [Rx] Nystatin [Nystatin Suspension] 100,000 units PO QID #120 ml 05/30/19 [Rx] OxyCODONE Immed Rel [Roxicodone 5 MG] 5 mg PO Q6H PRN 5 Days #20 tablet 07/21/19 [Rx] levoFLOXacin [Levaquin] 500 mg PO DAILY #5 tablet 05/30/19 [Rx] predniSONE [PredniSONE] 40 mg PO DAILY 7 Days #14 tablet 05/30/19 [Rx] Allergies/Adverse Reactions: Allergy/AdvReac Type Severity Reaction Status Date / Time No Known Allergies Allergy Verified 05/27/19 16:44 Date of admission: 05/27/19 19:30 Primary care physician: Italo Wang Consults: 05/27/19 20:16 Consult to Pulmonology [CONS] Routine Consulting Provider: [facility] [place] Reason for Consult: 78 year old woman with left lung cancer presenting with increasing shortness of breath with concerns for mass obstruction or embolic disease Call Completed: Yes 05/28/19 14:15 Consult to Oncology Hematology [CONS] Routine Consulting Provider: Shawn Cleaning Reason for Consult: lung cancer Time Notified: 14:19 Call Completed: Yes 05/28/19 16:10 Consult to Physical Therapy [CONS] Routine Comment: Evaluate, develop and implement POC Reason for Consult: weakness Does patient have active BEDREST order?: No Is patient medically & hemodynamically stable?: Yes 05/28/19 16:12 Consult to Nurse Navigator [CONS] Routine Comment: PN Consult to Occupational Therapy [CONS] Routine Comment: Evaluate, develop and implement POC Reason for Consult: weakness Does patient have active BEDREST order?: No Is patient medically & hemodynamically stable?: Yes - Constitutional Vitals: Temp Pulse Resp BP Pulse Ox 98.6 F 86 12 169/83 90 05/30/19 07:03 05/30/19 07:03 05/30/19 07:26 05/30/19 07:03 05/30/19 07:26 Exam: Gen: Alert, awake, Oriented to time,place and person Chest: Diminished breath sounds B/L, No crackles, No rales Heart: S1S2+ RRR No murmurs Abd: Soft, NT, BS +, No organomegaly Ext: No edema, pulses are palpable, No calf tenderness Neuro : No acute focal neuro deficits noticed Skin: No rash. - Patient Status Disposition: Home, Self-Care Condition: Fair - Discharge Instructions Instructions: Prednisone (By mouth), Nystatin (By mouth), Megestrol Acetate (By mouth), Oxycodone, Rapid Release (By mouth), Levofloxacin (By mouth), Atrial Fibrillation (DC), Acute Respiratory Distress Syndrome (DC), Adrenal Gland Biopsy (DC), Bacterial Pneumonia (DC), Dyspnea (GEN) Follow Up With: Italo Wang DO [Primary Care Provider] -
[2019-05-30] MEDS: levoFLOXacin 750 MG/150 ML 750 MG/150 ML BAG IVPB SCH (11:38)
[2019-05-30] MEDS: *HR* OxyCODONE Immed Rel 5 MG TABLET PO PRN (11:44)
[2019-05-30] MEDS: Ondansetron ODT 4 MG TAB.RAPDIS SL PRN (11:44)
== END 2019-05-30 13:10 | disposition home or self-care (01) ==
LOC: EMEROOARM 16:18 → 3BNU 16:18 → SUATTDRO 20:12 → 3BNU 21:55
PROVIDERS: ADMIT Internal Medicine; ATTEND Family Medicine